=== PATIENT | female | born 1945 | race Caucasian/White ===

== ENCOUNTER → 2016-08-08 | Outpatient (CLI) | payer OTHER, BC ==
--- NOTE | 2016-08-08 17:10 | MA ---
Screening Digital Mammogram Clinical Indications: Routine screening. Sr. With breast cancer in 40s Technique: Standard cephalocaudal and mediolateral oblique projections are obtained. An additional o blique lateral view is performed of the left breast. This examination is processed by the [employer] ter aided detection system. Comparison: June 2015, February 2014, December 2012 and October 2011 Breast density: B; There are scattered fibroglandular densities. Findings: CAD was reviewed. Small nodular density with possible associated architectural distortion i n the central right breast seen on the CC view may correspond to one of 2 vaguer nodular densities in the upper right breast seen on the oblique lateral view.. The remainder of the right and left breast are stable Impression: Possible small nodule right breast. Recommendation: Spot magnification views and true lateral view for further evaluation. If persistent , proceed to ultrasound for further characterization and localization purposes.. BI-RADS 0 additional imaging right breast. [facility] will send a result letter to the patient. Negative mammography should not preclude additional workup of a clinically suspicious finding. The patient's information is entered into a reminder system with a target due date for her next mammo gram.
== END ==
LOC: BMCIMAGING 15:17
DX: Z12.31 Encounter for screening mammogram for malignant neoplasm of breast (principal); N63 Unspecified lump in breast; Z85.3 Personal history of malignant neoplasm of breast
CPT/HCPCS: G0202

== ENCOUNTER → 2016-09-03 | Outpatient (CLI) | payer OTHER, BC | LOC: BMCIMAGING 12:53 | DX: R92.8 Other abnormal and inconclusive findings on diagnostic imaging of breast (principal) | CPT/HCPCS: G0206 ==

== ENCOUNTER → 2017-11-23 | Outpatient (CLI) | payer BC | LOC: BMCIMAGING 13:49 | PROVIDERS: ATTEND Family Medicine | DX: Z12.31 Encounter for screening mammogram for malignant neoplasm of breast (principal); Z13.820 Encounter for screening for osteoporosis; M85.89 Other specified disorders of bone density and structure, multiple sites; Z80.3 Family history of malignant neoplasm of breast ==

== ENCOUNTER → 2018-12-27 | Outpatient (CLI) | payer BC | LOC: BMCIMAGING 12:43 ==

== ENCOUNTER → 2019-01-04 | Outpatient (CLI) | payer BC | LOC: BMCIMAGING 09:51 ==

== ENCOUNTER → 2019-01-11 | Outpatient (CLI) | payer BC | LOC: FIMAGING 07:20 ==